=== PATIENT | female | born 1985 | race Caucasian/White ===

== ENCOUNTER 2018-05-25 15:05 | Emergency (ER) | payer OTHER ==
[~2018-05-25] VITALS: Ht 157.5 cm; Wt 72.6 kg
== END 2018-05-25 21:08 | disposition home or self-care (01) ==
LOC: ER 15:05
DX: O26.891 Other specified pregnancy related conditions, first trimester (principal); K29.70 Gastritis, unspecified, without bleeding; Z34.81 Encounter for supervision of other normal pregnancy, first trimester

== ENCOUNTER 2018-10-28 09:20 | Outpatient (CLI) | payer OTHER | END 2018-10-28 09:43 | disposition home or self-care (01) | LOC: NST 09:20 | DX: Z34.83 Encounter for supervision of other normal pregnancy, third trimester (principal) ==

== ENCOUNTER 2018-11-18 08:46 | Outpatient (CLI) | payer OTHER | END 2018-11-18 09:38 | disposition home or self-care (01) | LOC: NST 08:46 | DX: Z34.83 Encounter for supervision of other normal pregnancy, third trimester (principal) ==

== ENCOUNTER 2018-11-18 10:01 | Inpatient (IN) | payer OTHER ==
[~2018-11-18] VITALS: Ht 162.6 cm; Wt 2.7 kg
[2018-12-02] MEDS ORDERED: PRENATABS RX T1 EACH PO (11:54)
== END 2018-12-07 13:11 | disposition home or self-care (01) | DRG 788 ==
LOC: LDR 12-04 19:17 → O/R 12-04 20:05 → OB/GYN 12-04 21:20 → LDR 12-08 11:15
PROVIDERS: ADMIT Obstetrics & Gynecology Maternal & Fetal Medicine
PROC: 4A1HXCZ Monitoring of Products of Conception, Cardiac Rate, External Approach (ICD-10-PCS; 2018-12-04)
PROC: 10D00Z1 Extraction of Products of Conception, Low, Open Approach (ICD-10-PCS; principal; 2018-12-04 19:00)
DX: O82 Encounter for cesarean delivery without indication (principal); O34.211 Maternal care for low transverse scar from previous cesarean delivery; O75.82 Onset (spontaneous) of labor after 37 completed weeks of gestation but before 39 completed weeks gestation, with delivery by (planned) cesarean section; Z3A.38 38 weeks gestation of pregnancy; Z37.0 Single live birth

== ENCOUNTER 2018-11-25 09:47 | Outpatient (CLI) | payer OTHER | END 2018-11-25 10:52 | disposition home or self-care (01) | LOC: NST 09:47 | DX: Z34.83 Encounter for supervision of other normal pregnancy, third trimester (principal) ==